=== PATIENT | female | born 1970 | race African-American/Black ===

== ENCOUNTER 2018-01-14 11:53 | Inpatient (IN) ==
[2018-01-14 12:34] LABS: Basophils % 0.1 % (0.0-0.8); Hematocrit 34.1 VOL% (35.7-47.0); Hemoglobin 10.7 GM/DL (12.0-16.0); Immature Granulocytes % 0.2 %; Immature Granulocytes Absolute 0.02 #; Lymphocytes # 2.7 10*3/uL (1.4-4.0); Lymphocytes % 25.4 % (21.3-54.2); Mean Corpuscular HGB Conc 31.4 GM/DL (32-36); Mean Corpuscular Hemoglobin 26 PG (27-34); Mean Corpuscular Volume 82.8 FL (87-102); Mean Platelet Volume 9.9 FL (9.6-12.0); Monocytes # 0.8 10*3/uL (0.11-0.8); Monocytes % 7.1 % (1.7-12.7); Neutrophils # 7.2 10*3/uL (1.4-7.4); Neutrophils % 67.2 % (38.7-73.9); Platelet Count 336 T/CUMM (130-400); Red Blood Count 4.12 MC/CUMM (3.8-5.5); Red Cell Distribution Width 13.8 % (9.3-17.3); White Blood Count 10.7 T/CUMM (4-12)
[2018-01-14 12:44] LABS: PT Patient Result 10.5 SECS; Partial Thromboplastin Time 23.6 SECS (0-40)
[2018-01-14 12:53] LABS: Albumin 2.9 G/DL (3.4-5.0); Bilirubin,Total 0.6 MG/DL (0.2-1.0); Calcium 8.9 MG/DL (8.5-10.1); Osmolality,Calculated 282.3 MOS/KG (273-304); Potassium 3.5 MMOL/L (3.5-5.1); Total Protein 6.9 G/DL (6.4-8.3)
[2018-01-14] MEDS ORDERED: FUROSEMIDE 40 MG/4 ML VIAL IV STA (13:00)
[2018-01-14 13:23] LABS: Apearance,Urine CLEAR (Clear); Bilirubin,Urine Negative (Negative); Blood, Urine Negative (Negative); Glucose,Urine (UA) Negative (Negative); Ketones,Urine Negative (Negative); Mucus,Urine Many /LPF (Occasional); Nitrite,Urine Negative (Negative); Protein,Urine 30 MG/DL; RBC,Urine 1 /HPF (0-4); Squamous Epithelial Cell,Urine Occasional /HPF (0-10); Urine Color Yellow (Yellow); Urine Specific Gravity 1.034 (1.001-1.035); WBC,Urine 1 /HPF (0-6)
[2018-01-14 13:30] LABS: Barbiturates Screen,Urine Negative (Negative); Benzodiazepines Screen,Urine Negative (Negative); Cannabinoid Screen,Urine Negative (Negative); Opiate Screen,Urine Positive (Negative); Phencyclidine Screen,Urine Negative (Negative)
[2018-01-14 13:40] LABS: ABG Base Excess -0.2 MMOL/L (-2.5-2.5); ABG HCO3 24.3 MMOL/L (20-26); ABG Oxygen Saturation 99.1 % (95-100); ABG PCO2 35.5 MM HG (35-48); ABG PH 7.433 (7.35-7.45); ABG TCO2 21.1 MMOL/L (23-27)
[2018-01-14] MEDS ORDERED: ONDANSETRON 4 MG/2 ML VIAL IV PRN (14:16)
[2018-01-14] MEDS ORDERED: ACETAMINOPHEN 325 MG TABLET PO PRN (14:16)
[2018-01-14] MEDS ORDERED: PANTOPRAZOLE 40 MG TABLET PO ONE (14:25)
[2018-01-14] MEDS: PANTOPRAZOLE 40 MG TABLET PO SCH (14:30)
[2018-01-14] MEDS: ENOXAPARIN 40 MG/0.4 ML SYRINGE SUBCUT SCH (14:31)
[2018-01-14] MEDS ORDERED: FLUCONAZOLE 150 MG TABLET PO SCH (15:30)
[2018-01-14] MEDS: METOPROLOL TARTRATE 50 MG TABLET PO SCH (18:02)
[2018-01-14] MEDS: ALBUTEROL/IPRATROPIUM 3 ML NEB RESP TX SCH (18:40)
[2018-01-14] MEDS: HYDROcodone/CHLORPHENIRAMINE ER 5 ML UDCUP PO PRN (20:50)
[2018-01-14] MEDS: FUROSEMIDE 40 MG/4 ML VIAL IV SCH (20:51)
[2018-01-14] MEDS: LOSARTAN 25 MG TABLET PO SCH (20:56)
[2018-01-15] MEDS: ALBUTEROL/IPRATROPIUM 3 ML NEB RESP TX SCH ×4 (00:10→19:36)
[2018-01-15 04:17] LABS: Basophils % 0.5 % (0.0-0.8); Eosinophils % 0.3 % (0.00-10.9); Hematocrit 33.4 VOL% (35.7-47.0); Hemoglobin 10.6 GM/DL (12.0-16.0); Immature Granulocytes % 0.3 %; Immature Granulocytes Absolute 0.03 #; Lymphocytes # 4.7 10*3/uL (1.4-4.0); Lymphocytes % 54.8 % (21.3-54.2); Mean Corpuscular HGB Conc 31.7 GM/DL (32-36); Mean Corpuscular Hemoglobin 26 PG (27-34); Mean Corpuscular Volume 83.1 FL (87-102); Mean Platelet Volume 10.1 FL (9.6-12.0); Monocytes # 0.5 10*3/uL (0.11-0.8); Monocytes % 6.3 % (1.7-12.7); Neutrophils # 3.3 10*3/uL (1.4-7.4); Neutrophils % 37.8 % (38.7-73.9); Platelet Count 344 T/CUMM (130-400); Red Blood Count 4.02 MC/CUMM (3.8-5.5); White Blood Count 8.6 T/CUMM (4-12)
[2018-01-15 04:34] LABS: Calcium 8.1 MG/DL (8.5-10.1); Osmolality,Calculated 284.3 MOS/KG (273-304); Potassium 3.1 MMOL/L (3.5-5.1)
[2018-01-15 04:47] LABS: Blood Urea Nitrogen 23 MG/DL (7-18); Calcium 8.1 MG/DL (8.5-10.1); Cholesterol 126 MG/DL (50-200); Glucose 104 MG/DL (74-106); HDL Cholesterol 45 MG/DL (40-60); Osmolality,Calculated 282.4 MOS/KG (273-304); Potassium 3.1 MMOL/L (3.5-5.1); Sodium 140 MMOL/L (136-145); Thyroid Stimulating Hormone < 0.005 uIU/ml (0.358-3.74); Triglycerides 88 MG/DL (2-150); VLDL CHOLESTEROL 17.6 MG/DL
[2018-01-15 04:57] LABS: Atypical Lymphocytes Few; Hypochromasia 1+; Lymphocytes 57 % (20-55); Platelet Estimate Adequate; Segmented Neutrophils 38 % (50-85); Total Cells Counted 100
[2018-01-15] MEDS ORDERED: POTASSIUM CHLORIDE 20 MEQ TABLET PO PRN (06:42)
[2018-01-15] MEDS ORDERED: POTASSIUM CHLORIDE 20 MEQ TABLET PO ONE (08:33)
[2018-01-15] MEDS: CEFUROXIME 500 MG TABLET PO SCH ×2 (08:52→23:51)
[2018-01-15] MEDS: METOPROLOL TARTRATE 50 MG TABLET PO SCH (08:52)
[2018-01-15] MEDS: FUROSEMIDE 40 MG/4 ML VIAL IV SCH ×2 (08:52→17:05)
[2018-01-15] MEDS: LOSARTAN 25 MG TABLET PO SCH ×2 (08:52→22:19)
[2018-01-15] MEDS: PANTOPRAZOLE 40 MG TABLET PO SCH (08:57)
[2018-01-15] MEDS: HYDROcodone/CHLORPHENIRAMINE ER 5 ML UDCUP PO PRN (08:57)
[2018-01-15] MEDS ORDERED: amLODIPine 2.5 MG TABLET PO SCH (09:00)
[2018-01-15] MEDS ORDERED: NAPROXEN 250 MG TABLET PO PRN (11:33)
[2018-01-15 11:37] LABS: Free T4 (Free Thyroxine) 2.53 NG/DL (0.76-1.46)
[2018-01-15] MEDS: POTASSIUM CHLORIDE 20 MEQ TABLET PO SCH (12:53)
[2018-01-15] MEDS: ENOXAPARIN 40 MG/0.4 ML SYRINGE SUBCUT SCH (15:29)
[2018-01-16] MEDS: ALBUTEROL/IPRATROPIUM 3 ML NEB RESP TX SCH ×2 (01:03→07:07)
[2018-01-16 05:04] LABS: Basophils % 0.3 % (0.0-0.8); Eosinophils # 0.1 10*3/uL (0.0-0.87); Eosinophils % 0.9 % (0.00-10.9); Hematocrit 35.1 VOL% (35.7-47.0); Hemoglobin 11.2 GM/DL (12.0-16.0); Immature Granulocytes % 0.1 %; Immature Granulocytes Absolute 0.01 #; Lymphocytes % 52.5 % (21.3-54.2); Mean Corpuscular HGB Conc 31.9 GM/DL (32-36); Mean Corpuscular Hemoglobin 27 PG (27-34); Mean Corpuscular Volume 83.8 FL (87-102); Mean Platelet Volume 10.3 FL (9.6-12.0); Monocytes # 0.5 10*3/uL (0.11-0.8); Monocytes % 6.5 % (1.7-12.7); Neutrophils % 39.7 % (38.7-73.9); Platelet Count 351 T/CUMM (130-400); Red Blood Count 4.19 MC/CUMM (3.8-5.5); Red Cell Distribution Width 13.7 % (9.3-17.3); White Blood Count 7.7 T/CUMM (4-12)
[2018-01-16 05:25] LABS: Ferritin 190.2 ng/ml (8-252)
[2018-01-16 05:33] LABS: Folate 12.5 NG/ML (5.4-24.0); Vitamin B12 693 PG/ML (211-911)
[2018-01-16 05:45] LABS: Calcium 8.5 MG/DL (8.5-10.1); Osmolality,Calculated 283.3 MOS/KG (273-304); Potassium 3.9 MMOL/L (3.5-5.1)
[2018-01-16 06:17] LABS: Sedimentation Rate-Westergren 58 MM/HR (0-20)
[2018-01-16 07:48] VITALS: BP 96/64
[2018-01-16] MEDS ORDERED: FUROSEMIDE 40 MG TABLET PO SCH (09:00)
[2018-01-16] MEDS ORDERED: LOSARTAN 25 MG TABLET PO SCH (09:00)
[2018-01-16] MEDS ORDERED: methIMAzole 10 MG TABLET PO SCH (09:00)
[2018-01-16] MEDS: CEFUROXIME 500 MG TABLET PO SCH (09:46)
[2018-01-16] MEDS: POTASSIUM CHLORIDE 20 MEQ TABLET PO SCH (09:46)
[2018-01-16] MEDS: PANTOPRAZOLE 40 MG TABLET PO SCH (09:46)
[2018-01-16] MEDS: METOPROLOL TARTRATE 50 MG TABLET PO SCH (11:17)
[2018-01-20 10:33] LABS: Hemoglobin A1 (Alkaline) 97.5 % (96.5-98.5); Hemoglobin A2 (Alkaline) 2.5 % (1.5-3.5)
== END 2018-01-16 12:15 | disposition home or self-care (01) | DRG 293 ==
LOC: N.ED 11:53 → N.EDINP 14:16 → N.2W 14:56 → N.TELEN 16:44
PROVIDERS: ADMIT Hospitalist; ATTEND Hospitalist

== ENCOUNTER 2018-03-13 04:56 | Inpatient (IN) ==
[2018-03-12 11:17] LABS: Basophils % 0.5 % (0.0-0.8); Eosinophils % 0.9 % (0.00-10.9); Hematocrit 36.7 VOL% (35.7-47.0); Hemoglobin 11.5 GM/DL (12.0-16.0); Immature Granulocytes % 0.2 %; Immature Granulocytes Absolute 0.01 #; Lymphocytes # 2.3 10*3/uL (1.4-4.0); Lymphocytes % 51.8 % (21.3-54.2); Mean Corpuscular HGB Conc 31.3 GM/DL (32-36); Mean Corpuscular Hemoglobin 27 PG (27-34); Mean Corpuscular Volume 84.8 FL (87-102); Mean Platelet Volume 9.9 FL (9.6-12.0); Monocytes # 0.3 10*3/uL (0.11-0.8); Monocytes % 7.6 % (1.7-12.7); Neutrophils # 1.7 10*3/uL (1.4-7.4); Platelet Count 240 T/CUMM (130-400); Red Blood Count 4.33 MC/CUMM (3.8-5.5); Red Cell Distribution Width 13.7 % (9.3-17.3); White Blood Count 4.4 T/CUMM (4-12)
[2018-03-12 11:26] LABS: Apearance,Urine CLOUDY (Clear); Bilirubin,Urine Negative (Negative); Blood, Urine Negative (Negative); Calcium Oxalate Crystals,Urine Few /HPF (Few); Glucose,Urine (UA) Negative (Negative); Ketones,Urine Negative (Negative); Mucus,Urine Many /LPF (Occasional); Nitrite,Urine Negative (Negative); Protein,Urine Negative; RBC,Urine 4 /HPF (0-4); Squamous Epithelial Cell,Urine Occasional /HPF (0-10); Urine Color Yellow (Yellow); Urine Specific Gravity 1.026 (1.001-1.035); Urine Urobilinogen < 2.0 EU/DL (0.2-1.0); WBC,Urine 2 /HPF (0-6)
[2018-03-12 11:27] LABS: PT Patient Result 10.7 SECS; Partial Thromboplastin Time 23.8 SECS (0-40)
[2018-03-12 11:42] LABS: Calcium 8.6 MG/DL (8.5-10.1); Osmolality,Calculated 281.3 MOS/KG (273-304); Potassium 3.7 MMOL/L (3.5-5.1)
[~2018-03-13 04:56] MED LIST: SODIUM CHLORIDE 0.9% 1,000 ML IV PRN; TISSUE ADHESIVE 1 EACH APPLICATOR TOP ONE; VANCOMYCIN 1,000 MG VIAL ONE
[2018-03-13] MEDS ORDERED: FAMOTIDINE 20 MG TABLET ONE (05:52)
[2018-03-13] MEDS ORDERED: DIAZEPAM 5 MG TABLET ONE (05:52)
[2018-03-13] MEDS ORDERED: CEFUROXIME 1,500 MG VIAL ONE (05:52)
[2018-03-13] MEDS ORDERED: FAMOTIDINE 20 MG TABLET PO ONE (06:00)
[2018-03-13] MEDS ORDERED: DIAZEPAM 5 MG TABLET PO ONE (06:00)
[2018-03-13] MEDS: LACTATED RINGERS 1,000 ML IV SCH (06:34)
[2018-03-13 08:00] LABS: ABG Base Excess -8.6 MMOL/L (-2.5-2.5); ABG HCO3 17.5 MMOL/L (20-26); ABG Oxygen Saturation 99.7 % (95-100); ABG PCO2 37.5 MM HG (35-48); ABG PH 7.278 (7.35-7.45); Glucose Heart Surgery 140 MG/DL (74-106); Hematocrit Heart Surgery 33.9 PERCENT (37-47); Ionized Calcium Arterial 1.09 MMOL/L (1.21-1.46); PCO2 Patient Temp Arterial 37.5 MMHG; PH Patient Temp Arterial 7.278; Patient Temperature 37 CELCIUS; Sodium Heart/CVR 134 MMOL/L (135-145)
[2018-03-13 08:15] LABS: Apearance,Urine CLEAR (Clear); Bilirubin,Urine Negative (Negative); Blood, Urine Small mg/dL (Negative); Glucose,Urine (UA) Negative (Negative); Ketones,Urine Negative (Negative); Mucus,Urine Occasional /LPF (Occasional); Nitrite,Urine Negative (Negative); Protein,Urine Negative; RBC,Urine 1 /HPF (0-4); Squamous Epithelial Cell,Urine Occasional /HPF (0-10); Urine Color Yellow (Yellow); Urine Specific Gravity 1.019 (1.001-1.035); Urine Urobilinogen < 2.0 EU/DL (0.2-1.0); WBC,Urine 1 /HPF (0-6)
[2018-03-13] MEDS ORDERED: MINERAL OIL/PETROLATUM OPH OINT 3.5 GM TUBE ONE (08:30)
[2018-03-13] MEDS ORDERED: PHENYLEPHRINE DRIP 20 MG/250 ML PREMIX IV ONE (08:30)
[2018-03-13] MEDS ORDERED: HEPARIN/NACL 0.9% 2 UNITS/ML 500 ML IV ONE (08:30)
[2018-03-13] MEDS ORDERED: ETOMIDATE 40 MG/20 ML VIAL IV ONE (08:31)
[2018-03-13] MEDS ORDERED: VECURONIUM 10 MG VIAL IV ONE (08:31)
[2018-03-13] MEDS ORDERED: NITROGLYCERIN DRIP 50 MG/250 ML BOTTLE IV ONE (08:31)
[2018-03-13 08:51] LABS: Hematocrit Heart Surgery 18.6 PERCENT (37-47); PCO2 Patient Temp Venous 31.3 MM HG; PH Patient Temp Venous 7.549; PO2 Patient Temp Venous 31.6 MM HG; Potassium Heart/CVR 5.3 MMOL/L (3.5-5.1); VBG Base Excess 4.9 MEQ/L (0-4); VBG HCO3 28.6 MEQ/L (24-28); VBG PCO2 34.5 MMHG (41-51); VBG PH 7.518; VBG PO2 36.3 MMHG (17-40)
[2018-03-13 08:53] LABS: Hemoglobin Heart Surgery 5.9 G/DL (12.0-16.0)
[2018-03-13 09:23] LABS: Hematocrit Heart Surgery 19.2 PERCENT (37-47); PCO2 Patient Temp Venous 28.3 MM HG; PH Patient Temp Venous 7.555; PO2 Patient Temp Venous 26.9 MM HG; Potassium Heart/CVR 5.1 MMOL/L (3.5-5.1); VBG HCO3 26.8 MEQ/L (24-28); VBG Oxygen Saturation 67.2 %; VBG PCO2 32.7 MMHG (41-51); VBG PH 7.509; VBG PO2 33.2 MMHG (17-40)
[2018-03-13 09:24] LABS: Hemoglobin Heart Surgery 6.1 G/DL (12.0-16.0)
[2018-03-13 09:55] LABS: Hematocrit Heart Surgery 21.3 PERCENT (37-47); Hemoglobin Heart Surgery 6.8 G/DL (12.0-16.0); PCO2 Patient Temp Venous 28.7 MM HG; PH Patient Temp Venous 7.532; PO2 Patient Temp Venous 31.8 MM HG; VBG Base Excess 1.9 MEQ/L (0-4); VBG HCO3 25.9 MEQ/L (24-28); VBG Oxygen Saturation 79.5 %; VBG PCO2 34.8 MMHG (41-51); VBG PH 7.472
[2018-03-13] MEDS ORDERED: LABETALOL 100 MG/20 ML VIAL IV ONE (10:08)
[2018-03-13] MEDS ORDERED: AMINOCAPROIC ACID 5,000 MG/20 ML VIAL IV ONE (10:10)
[2018-03-13] MEDS ORDERED: THROMBIN TOPICAL (RECOMBINANT) 5,000 UNIT VIAL TOP ONE ×2 (10:56→11:09)
[2018-03-13 11:00] LABS: ABG Base Excess -4.8 MMOL/L (-2.5-2.5); ABG HCO3 20.4 MMOL/L (20-26); ABG PCO2 39.8 MM HG (35-48); ABG PH 7.326 (7.35-7.45); ABG TCO2 19.5 MMOL/L (23-27); Glucose Heart Surgery 269 MG/DL (74-106); Hematocrit Heart Surgery 25.4 PERCENT (37-47); Hemoglobin Heart Surgery 8.2 G/DL (12.0-16.0); Ionized Calcium Arterial 1.14 MMOL/L (1.21-1.46); PCO2 Patient Temp Arterial 39.8 MMHG; PH Patient Temp Arterial 7.326; Patient Temperature 37 CELCIUS; Potassium Heart/CVR 3.8 MMOL/L (3.5-5.1); Sodium Heart/CVR 135 MMOL/L (135-145)
[2018-03-13] MEDS ORDERED: methylPREDNISolone SOD SUC 1,000 MG/8 ML VIAL ONE (11:16)
[2018-03-13] MEDS ORDERED: POTASSIUM CHLORIDE RIDER 100 ML IV ONE (11:16)
[2018-03-13] MEDS ORDERED: MANNITOL 100 GM/500 ML BAG IV ONE (11:16)
[2018-03-13] MEDS ORDERED: SODIUM BICARBONATE 50 MEQ/50 ML SYRINGE IV ONE ×3 (11:16→16:24)
[2018-03-13] MEDS ORDERED: ALBUMIN 25% 25 GM/100 ML VIAL IV ONE (11:16)
[2018-03-13] MEDS ORDERED: DEXTROSE 5% KCL 20 MEQ 20 MEQ/1,000 ML BAG IV ONE (11:16)
[2018-03-13] MEDS ORDERED: PROTAMINE SULFATE 250 MG/25 ML VIAL IV ONE (11:16)
[2018-03-13] MEDS ORDERED: HEPARIN 10,000 UNIT/10 ML VIAL ONE (11:16)
[2018-03-13] MEDS ORDERED: FUROSEMIDE 20 MG/2 ML VIAL ONE (11:17)
[2018-03-13] MEDS ORDERED: ACETAMINOPHEN 650 MG SUPP RECTAL PRN (11:49)
[2018-03-13] MEDS ORDERED: MIDAZOLAM 2 MG/2 ML VIAL IV PRN (11:49)
[2018-03-13] MEDS ORDERED: DEXTROSE 50% 25 GM/50 ML SYRINGE IV PRN ×2 (11:49→12:30)
[2018-03-13] MEDS ORDERED: DEXTROSE 50% 25 GM/50 ML VIAL IV PRN (11:49)
[2018-03-13] MEDS ORDERED: POTASSIUM CHLORIDE RIDER 10 MEQ in PREMIX 1 EACH IV PRN (11:49)
[2018-03-13] MEDS ORDERED: MAGNESIUM SULF RIDER 2 GM in PREMIX 1 EACH IV PRN (11:49)
[2018-03-13] MEDS ORDERED: CHLORHEXIDINE 4% SOLN 118 ML BOTTLE TOP PRN (11:49)
[2018-03-13] MEDS ORDERED: SODIUM CHLORIDE 0.9% 250 ML IV PRN (11:49)
[2018-03-13] MEDS ORDERED: INSULIN REGULAR 100 UNIT/ML IV PRN (11:49)
[2018-03-13] MEDS ORDERED: MAGNESIUM SULF RIDER 4 GM in PREMIX 1 EACH IV PRN (11:49)
[2018-03-13] MEDS ORDERED: CALCIUM CHLORIDE 1,000 MG/10 ML SYRINGE IV PRN (11:49)
[2018-03-13] MEDS ORDERED: PHENYLEPHRINE DRIP 0 MG/0 ML PREMIX IV ONE (11:51)
[2018-03-13] MEDS ORDERED: ALBUMIN 5% 12.5 GM/250 ML VIAL IV ONE ×2 (11:51→12:56)
[2018-03-13] MEDS ORDERED: EPINEPHrine 1 MG/ML VIAL ONE (11:54)
[2018-03-13] MEDS ORDERED: INSULIN REGULAR DRIP 100 ML IV SCH (12:00)
[2018-03-13 12:12] LABS: ABG Base Excess -5.9 MMOL/L (-2.5-2.5); ABG HCO3 18.4 MMOL/L (20-26); ABG Oxygen Saturation 98.7 % (95-100); ABG PCO2 31.6 MM HG (35-48); ABG PH 7.384 (7.35-7.45); ABG PO2 245.6 MM HG (80-95); ABG TCO2 19.4 MMOL/L (23-27); Glucose Heart Surgery 233 MG/DL (74-106); Potassium Heart/CVR 3.4 MMOL/L (3.5-5.1)
[2018-03-13 12:16] LABS: Basophils % 0.2 % (0.0-0.8); Eosinophils % 0.2 % (0.00-10.9); Hematocrit 23.1 VOL% (35.7-47.0); Immature Granulocytes % 0.6 %; Immature Granulocytes Absolute 0.08 #; Lymphocytes # 2.7 10*3/uL (1.4-4.0); Mean Corpuscular HGB Conc 31.6 GM/DL (32-36); Mean Corpuscular Hemoglobin 27 PG (27-34); Mean Corpuscular Volume 85.2 FL (87-102); Mean Platelet Volume 10.5 FL (9.6-12.0); Monocytes # 0.7 10*3/uL (0.11-0.8); Monocytes % 5.7 % (1.7-12.7); Neutrophils # 8.8 10*3/uL (1.4-7.4); Neutrophils % 71.3 % (38.7-73.9); Platelet Count 139 T/CUMM (130-400); Red Blood Count 2.71 MC/CUMM (3.8-5.5); Red Cell Distribution Width 13.8 % (9.3-17.3); White Blood Count 12.4 T/CUMM (4-12)
[2018-03-13 12:20] LABS: Hemoglobin 7.3 GM/DL (12.0-16.0)
[2018-03-13] MEDS: ALBUMIN 5% 12.5 GM in PREMIX 1 EACH IV PRN ×2 (12:24→15:00)
[2018-03-13] MEDS: SODIUM CHLORIDE 0.45% 1,000 ML IV SCH ×2 (12:25)
[2018-03-13 12:26] LABS: INR 1.4; PT Patient Result 14.7 SECS; Partial Thromboplastin Time 29.4 SECS (0-40)
[2018-03-13 12:36] LABS: Blood Urea Nitrogen 14 MG/DL (7-18); Calcium 7.9 MG/DL (8.5-10.1); Glucose 234 MG/DL (74-106); Osmolality,Calculated 291.1 MOS/KG (273-304); Potassium 3.6 MMOL/L (3.5-5.1); Sodium 142 MMOL/L (136-145)
[2018-03-13] MEDS: POTASSIUM CHLORIDE RIDER 20 MEQ in PREMIX 1 EACH IV PRN (12:38)
[2018-03-13] MEDS ORDERED: CALCIUM CHLORIDE 1,000 MG/10 ML VIAL IV ONE (12:55)
[2018-03-13] MEDS ORDERED: SEVOFLURANE 1 UNIT/15 MINUTE INH ONE (12:55)
[2018-03-13] MEDS ORDERED: SODIUM CHLORIDE 0.9% 1,000 ML IV ONE (12:56)
[2018-03-13] MEDS ORDERED: LACTATED RINGERS 2,000 ML IV ONE (12:56)
[2018-03-13] MEDS ORDERED: MIDAZOLAM 10 MG/2 ML VIAL ONE (12:56)
[2018-03-13] MEDS ORDERED: PHENYLEPHRINE 1 MG/10 ML SYRINGE IV ONE (12:56)
[2018-03-13] MEDS ORDERED: SODIUM CHLORIDE 0.9% 100 ML IV ONE (12:56)
[2018-03-13] MEDS ORDERED: SODIUM CHLORIDE 0.9% 250 ML IV ONE (12:56)
[2018-03-13] MEDS ORDERED: CEFUROXIME INJ 1,500 MG in SYRINGE 1 EACH IV ONE (13:16)
[2018-03-13 13:53] LABS: VBG Base Excess -5.8 MEQ/L (0-4); VBG HCO3 18.9 MEQ/L (24-28); VBG Oxygen Saturation 47.4 %; VBG PH 7.282; VBG PO2 29.3 MMHG (17-40)
[2018-03-13] MEDS: MORPHINE 10 MG/1 ML VIAL IV PRN (14:43)
[2018-03-13 16:12] LABS: ABG Base Excess -7.7 MMOL/L (-2.5-2.5); ABG HCO3 18.4 MMOL/L (20-26); ABG PCO2 39.6 MM HG (35-48); ABG PH 7.285 (7.35-7.45); ABG PO2 94.8 MM HG (80-95); ABG TCO2 19.6 MMOL/L (23-27)
[2018-03-13] MEDS ORDERED: DOBUTamine 500 MG/250 ML PREMIX IV ONE (16:22)
[2018-03-13] MEDS ORDERED: DOBUTamine 500 MG/250 ML PREMIX IV SCH (16:30)
[2018-03-13 16:55] LABS: Hematocrit 30.3 VOL% (35.7-47.0); Hemoglobin 9.8 GM/DL (12.0-16.0)
[2018-03-13] MEDS: MORPHINE 4 MG/1 ML VIAL IV PRN ×2 (17:15→20:52)
[2018-03-13] MEDS: ONDANSETRON 4 MG/2 ML VIAL IV PRN ×2 (18:07→23:00)
[2018-03-13] MEDS: CEFUROXIME INJ 1,500 MG in SYRINGE 1 EACH IV SCH (20:56)
[2018-03-13] MEDS: CHLORHEXIDINE 0.12% ORAL RINSE 60 ML BOTTLE SWISH/SPIT SCH (21:38)
[2018-03-14] MEDS: MORPHINE 4 MG/1 ML VIAL IV PRN ×6 (00:19→20:19)
[2018-03-14] MEDS: SODIUM CHLORIDE 0.45% 1,000 ML IV SCH ×3 (01:31→08:28)
[2018-03-14 04:27] LABS: Basophils % 0.1 % (0.0-0.8); Hematocrit 30.9 VOL% (35.7-47.0); Hemoglobin 10.1 GM/DL (12.0-16.0); Immature Granulocytes % 0.5 %; Immature Granulocytes Absolute 0.05 #; Lymphocytes % 9.1 % (21.3-54.2); Mean Corpuscular HGB Conc 32.7 GM/DL (32-36); Mean Corpuscular Hemoglobin 28 PG (27-34); Mean Corpuscular Volume 86.8 FL (87-102); Mean Platelet Volume 11.2 FL (9.6-12.0); Monocytes # 0.7 10*3/uL (0.11-0.8); Monocytes % 6.3 % (1.7-12.7); Neutrophils # 9.2 10*3/uL (1.4-7.4); Platelet Count 117 T/CUMM (130-400); Red Blood Count 3.56 MC/CUMM (3.8-5.5); Red Cell Distribution Width 14.3 % (9.3-17.3)
[2018-03-14 04:35] LABS: Calcium 7.1 MG/DL (8.5-10.1); Osmolality,Calculated 285.8 MOS/KG (273-304); Potassium 3.9 MMOL/L (3.5-5.1)
[2018-03-14] MEDS: ONDANSETRON 4 MG/2 ML VIAL IV PRN ×3 (06:01→17:25)
[2018-03-14] MEDS: POTASSIUM CHLORIDE RIDER 20 MEQ in PREMIX 1 EACH IV PRN (06:14)
[2018-03-14] MEDS: LACTATED RINGERS 1,000 ML IV SCH (07:07)
[2018-03-14] MEDS: ALBUTEROL/IPRATROPIUM 3 ML NEB RESP TX SCH ×3 (07:30→19:06)
[2018-03-14] MEDS ORDERED: FUROSEMIDE 40 MG/4 ML VIAL IV ONE (07:35)
[2018-03-14] MEDS: CEFUROXIME INJ 1,500 MG in SYRINGE 1 EACH IV SCH ×2 (07:53→20:29)
[2018-03-14] MEDS: FUROSEMIDE 40 MG TABLET PO SCH (08:15)
[2018-03-14] MEDS: CHLORHEXIDINE 0.12% ORAL RINSE 60 ML BOTTLE SWISH/SPIT SCH ×2 (08:16→20:29)
[2018-03-14] MEDS: PANTOPRAZOLE 40 MG VIAL IV SCH (08:28)
[2018-03-14] MEDS: ASPIRIN EC 325 MG TABLET PO SCH (08:28)
[2018-03-14] MEDS ORDERED: CODEINE PO PRN (10:34)
[2018-03-14] MEDS ORDERED: GUAIFEN PO PRN (10:34)
[2018-03-14] MEDS ORDERED: [UNRECOGNIZED DRUG - OTHER] PO PRN (10:34)
[2018-03-14] MEDS: METOPROLOL TARTRATE 25 MG TABLET PO SCH ×2 (10:39→20:28)
[2018-03-14] MEDS: methIMAzole 10 MG TABLET PO SCH ×2 (10:52→20:27)
[2018-03-14] MEDS ORDERED: ALBUTEROL 2.5 MG/3 ML NEB RESP TX PRN (11:00)
[2018-03-14] MEDS ORDERED: ALBUTEROL/IPRATROPIUM 3 ML NEB RESP TX SCH (13:00)
[2018-03-14] MEDS: BENZONATATE 100 MG CAPSULE PO PRN (20:27)
[2018-03-14] MEDS: ATORVASTATIN 40 MG TABLET PO SCH (20:28)
[2018-03-15] MEDS: ALBUTEROL/IPRATROPIUM 3 ML NEB RESP TX SCH ×4 (00:12→20:05)
[2018-03-15] MEDS: MORPHINE 4 MG/1 ML VIAL IV PRN ×2 (01:52→20:55)
[2018-03-15 04:37] LABS: Basophils % 0.1 % (0.0-0.8); Hematocrit 34.4 VOL% (35.7-47.0); Hemoglobin 10.9 GM/DL (12.0-16.0); Immature Granulocytes % 1.7 %; Lymphocytes # 2.9 10*3/uL (1.4-4.0); Lymphocytes % 15.7 % (21.3-54.2); Mean Corpuscular HGB Conc 31.7 GM/DL (32-36); Mean Corpuscular Hemoglobin 29 PG (27-34); Mean Corpuscular Volume 90.3 FL (87-102); Mean Platelet Volume 11.6 FL (9.6-12.0); Monocytes # 1.3 10*3/uL (0.11-0.8); Monocytes % 6.9 % (1.7-12.7); NRBC # 0.03 10*3/uL; Neutrophils # 13.8 10*3/uL (1.4-7.4); Neutrophils % 75.6 % (38.7-73.9); Platelet Count 147 T/CUMM (130-400); Red Blood Count 3.81 MC/CUMM (3.8-5.5); Red Cell Distribution Width 14.8 % (9.3-17.3); White Blood Count 18.2 T/CUMM (4-12)
[2018-03-15 05:02] LABS: Calcium 7.1 MG/DL (8.5-10.1); Osmolality,Calculated 278.1 MOS/KG (273-304); Potassium 4.3 MMOL/L (3.5-5.1)
[2018-03-15 05:03] LABS: Calcium 7.2 MG/DL (8.5-10.1); Osmolality,Calculated 280.8 MOS/KG (273-304); Potassium 4.4 MMOL/L (3.5-5.1)
[2018-03-15] MEDS: LACTATED RINGERS 1,000 ML IV SCH (09:34)
[2018-03-15] MEDS: FUROSEMIDE 40 MG TABLET PO SCH (09:36)
[2018-03-15] MEDS: ASPIRIN EC 325 MG TABLET PO SCH (09:36)
[2018-03-15] MEDS: METOPROLOL TARTRATE 25 MG TABLET PO SCH ×2 (09:36→20:59)
[2018-03-15] MEDS: methIMAzole 10 MG TABLET PO SCH ×2 (09:36→20:59)
[2018-03-15] MEDS: CHLORHEXIDINE 0.12% ORAL RINSE 60 ML BOTTLE SWISH/SPIT SCH ×2 (09:37→21:00)
[2018-03-15] MEDS: PANTOPRAZOLE 40 MG VIAL IV SCH (09:58)
[2018-03-15] MEDS ORDERED: FUROSEMIDE 40 MG/4 ML VIAL IV ONE (12:05)
[2018-03-15] MEDS: BENZONATATE 100 MG CAPSULE PO PRN (20:58)
[2018-03-15] MEDS: ATORVASTATIN 40 MG TABLET PO SCH (20:59)
[2018-03-16] MEDS: ALBUTEROL/IPRATROPIUM 3 ML NEB RESP TX SCH ×4 (01:56→19:06)
[2018-03-16 05:29] LABS: Basophils % 0.1 % (0.0-0.8); Hematocrit 30.8 VOL% (35.7-47.0); Hemoglobin 10.1 GM/DL (12.0-16.0); Immature Granulocytes % 0.7 %; Lymphocytes # 2.6 10*3/uL (1.4-4.0); Lymphocytes % 19.2 % (21.3-54.2); Mean Corpuscular HGB Conc 32.8 GM/DL (32-36); Mean Corpuscular Hemoglobin 29 PG (27-34); Mean Corpuscular Volume 87.3 FL (87-102); Mean Platelet Volume 11.3 FL (9.6-12.0); Monocytes # 1.2 10*3/uL (0.11-0.8); Monocytes % 8.8 % (1.7-12.7); Neutrophils # 9.7 10*3/uL (1.4-7.4); Neutrophils % 71.2 % (38.7-73.9); Platelet Count 140 T/CUMM (130-400); Red Blood Count 3.53 MC/CUMM (3.8-5.5); Red Cell Distribution Width 14.4 % (9.3-17.3); White Blood Count 13.7 T/CUMM (4-12)
[2018-03-16 05:45] LABS: Calcium 7.3 MG/DL (8.5-10.1); Osmolality,Calculated 278.8 MOS/KG (273-304); Potassium 3.7 MMOL/L (3.5-5.1)
[2018-03-16] MEDS ORDERED: POTASSIUM CHLORIDE 20 MEQ TABLET PO ONE (08:31)
[2018-03-16] MEDS: methIMAzole 10 MG TABLET PO SCH ×2 (09:13→22:36)
[2018-03-16] MEDS: METOPROLOL TARTRATE 25 MG TABLET PO SCH ×2 (09:13→22:36)
[2018-03-16] MEDS: PANTOPRAZOLE 40 MG TABLET PO SCH (09:13)
[2018-03-16] MEDS: FUROSEMIDE 40 MG TABLET PO SCH (09:13)
[2018-03-16] MEDS: ASPIRIN EC 325 MG TABLET PO SCH (09:14)
[2018-03-16] MEDS: CHLORHEXIDINE 0.12% ORAL RINSE 60 ML BOTTLE SWISH/SPIT SCH ×2 (09:14→22:36)
[2018-03-16] MEDS: DOCUSATE SODIUM 100 MG CAPSULE PO PRN (09:20)
[2018-03-16] MEDS: MORPHINE 4 MG/1 ML VIAL IV PRN (20:33)
[2018-03-16] MEDS: ONDANSETRON 4 MG/2 ML VIAL IV PRN (20:33)
[2018-03-16] MEDS: ATORVASTATIN 40 MG TABLET PO SCH (22:36)
[2018-03-17] MEDS: ALBUTEROL/IPRATROPIUM 3 ML NEB RESP TX SCH ×4 (00:06→19:55)
[2018-03-17 05:34] LABS: Basophils % 0.1 % (0.0-0.8); Hematocrit 26.7 VOL% (35.7-47.0); Hemoglobin 8.7 GM/DL (12.0-16.0); Immature Granulocytes % 1.1 %; Immature Granulocytes Absolute 0.15 #; Lymphocytes # 3.2 10*3/uL (1.4-4.0); Lymphocytes % 24.7 % (21.3-54.2); Mean Corpuscular HGB Conc 32.6 GM/DL (32-36); Mean Corpuscular Hemoglobin 29 PG (27-34); Mean Corpuscular Volume 88.1 FL (87-102); Mean Platelet Volume 11.1 FL (9.6-12.0); Monocytes # 1.3 10*3/uL (0.11-0.8); Monocytes % 9.9 % (1.7-12.7); NRBC # 0.05 10*3/uL; Neutrophils # 8.4 10*3/uL (1.4-7.4); Neutrophils % 64.2 % (38.7-73.9); Platelet Count 189 T/CUMM (130-400); Red Blood Count 3.03 MC/CUMM (3.8-5.5); Red Cell Distribution Width 14.2 % (9.3-17.3); White Blood Count 13.1 T/CUMM (4-12)
[2018-03-17 05:52] LABS: Calcium 7.8 MG/DL (8.5-10.1); Potassium 4.4 MMOL/L (3.5-5.1)
[2018-03-17] MEDS: METOPROLOL TARTRATE 25 MG TABLET PO SCH (08:36)
[2018-03-17] MEDS: FUROSEMIDE 40 MG TABLET PO SCH ×2 (08:36→17:15)
[2018-03-17] MEDS: PANTOPRAZOLE 40 MG TABLET PO SCH (08:37)
[2018-03-17] MEDS: CHLORHEXIDINE 0.12% ORAL RINSE 60 ML BOTTLE SWISH/SPIT SCH (08:37)
[2018-03-17] MEDS: ASPIRIN EC 325 MG TABLET PO SCH (08:37)
[2018-03-17] MEDS: methIMAzole 10 MG TABLET PO SCH (08:37)
[2018-03-17] MEDS ORDERED: FUROSEMIDE 40 MG/4 ML VIAL IV ONE (09:15)
[2018-03-17] MEDS: HEPARIN DRIP 25,000 UNITS/500 ML PREMIX IV SCH (10:06)
[2018-03-17] MEDS ORDERED: MIDAZOLAM 2 MG/2 ML VIAL IV ONE (10:58)
[2018-03-17] MEDS ORDERED: LIDOCAINE 1% 20 ML VIAL INFILTRAT ONE (11:05)
[2018-03-17] MEDS ORDERED: MIDAZOLAM 10 MG/2 ML VIAL ONE (11:27)
[2018-03-17] MEDS: MORPHINE 10 MG/1 ML VIAL IV PRN (12:30)
[2018-03-17] MEDS: WARFARIN 5 MG TABLET PO SCH (17:15)
[2018-03-17] MEDS ORDERED: HEPARIN 5,000 UNIT/1 ML VIAL IV ONE (17:25)
[2018-03-17] MEDS: ONDANSETRON 4 MG/2 ML VIAL IV PRN (20:48)
[2018-03-17] MEDS: MORPHINE 4 MG/1 ML VIAL IV PRN (20:48)
[2018-03-18] MEDS: methIMAzole 10 MG TABLET PO SCH ×3 (00:02→22:25)
[2018-03-18] MEDS: ESCITALOPRAM 10 MG TABLET PO SCH ×2 (00:02→22:25)
[2018-03-18] MEDS: ATORVASTATIN 40 MG TABLET PO SCH ×2 (00:02→22:25)
[2018-03-18] MEDS: METOPROLOL TARTRATE 25 MG TABLET PO SCH ×3 (00:02→22:25)
[2018-03-18] MEDS: CHLORHEXIDINE 0.12% ORAL RINSE 60 ML BOTTLE SWISH/SPIT SCH ×3 (00:04→22:25)
[2018-03-18] MEDS: ALBUTEROL/IPRATROPIUM 3 ML NEB RESP TX SCH ×4 (01:50→19:03)
[2018-03-18] MEDS: MORPHINE 10 MG/1 ML VIAL IV PRN (02:36)
[2018-03-18] MEDS: ASPIRIN EC 325 MG TABLET PO SCH (08:42)
[2018-03-18] MEDS: FUROSEMIDE 40 MG TABLET PO SCH ×2 (08:42→17:36)
[2018-03-18] MEDS: PANTOPRAZOLE 40 MG TABLET PO SCH (08:43)
[2018-03-18 08:44] LABS: Basophils % 0.1 % (0.0-0.8); Eosinophils # 0.1 10*3/uL (0.0-0.87); Eosinophils % 0.4 % (0.00-10.9); Hematocrit 25.3 VOL% (35.7-47.0); Hemoglobin 8.4 GM/DL (12.0-16.0); Immature Granulocytes % 0.9 %; Immature Granulocytes Absolute 0.14 #; Lymphocytes # 4.2 10*3/uL (1.4-4.0); Lymphocytes % 27.9 % (21.3-54.2); Mean Corpuscular HGB Conc 33.2 GM/DL (32-36); Mean Corpuscular Hemoglobin 29 PG (27-34); Mean Corpuscular Volume 87.2 FL (87-102); Mean Platelet Volume 10.7 FL (9.6-12.0); Monocytes # 1.5 10*3/uL (0.11-0.8); Monocytes % 9.9 % (1.7-12.7); Neutrophils # 9.1 10*3/uL (1.4-7.4); Neutrophils % 60.8 % (38.7-73.9); Platelet Count 254 T/CUMM (130-400)
[2018-03-18 09:06] LABS: Calcium 8.1 MG/DL (8.5-10.1); Osmolality,Calculated 268.4 MOS/KG (273-304); Potassium 3.7 MMOL/L (3.5-5.1)
[2018-03-18] MEDS ORDERED: FUROSEMIDE 40 MG/4 ML VIAL IV ONE ×2 (10:10→17:00)
[2018-03-18] MEDS ORDERED: SODIUM CHLORIDE 0.9% 1,000 ML IV PRN (10:11)
[2018-03-18] MEDS: HEPARIN DRIP 25,000 UNITS/500 ML PREMIX IV SCH (11:45)
[2018-03-18] MEDS: WARFARIN 5 MG TABLET PO SCH (17:36)
[2018-03-18] MEDS: MORPHINE 4 MG/1 ML VIAL IV PRN (22:24)
[2018-03-19] MEDS: ALBUTEROL/IPRATROPIUM 3 ML NEB RESP TX SCH ×4 (00:43→20:31)
[2018-03-19 05:15] LABS: INR 1.4; PT Patient Result 15.4 SECS
[2018-03-19 05:17] LABS: Basophils % 0.1 % (0.0-0.8); Eosinophils # 0.1 10*3/uL (0.0-0.87); Eosinophils % 0.5 % (0.00-10.9); Hematocrit 31.1 VOL% (35.7-47.0); Hemoglobin 10.2 GM/DL (12.0-16.0); Immature Granulocytes % 0.9 %; Immature Granulocytes Absolute 0.13 #; Lymphocytes # 3.7 10*3/uL (1.4-4.0); Lymphocytes % 24.7 % (21.3-54.2); Mean Corpuscular HGB Conc 32.8 GM/DL (32-36); Mean Corpuscular Hemoglobin 29 PG (27-34); Mean Corpuscular Volume 88.1 FL (87-102); Mean Platelet Volume 10.8 FL (9.6-12.0); Monocytes # 1.3 10*3/uL (0.11-0.8); Monocytes % 8.9 % (1.7-12.7); Neutrophils # 9.7 10*3/uL (1.4-7.4); Neutrophils % 64.9 % (38.7-73.9); Platelet Count 267 T/CUMM (130-400); Red Blood Count 3.53 MC/CUMM (3.8-5.5); Red Cell Distribution Width 14.3 % (9.3-17.3)
[2018-03-19 05:45] LABS: Calcium 8.4 MG/DL (8.5-10.1); Osmolality,Calculated 269.2 MOS/KG (273-304); Potassium 3.7 MMOL/L (3.5-5.1)
[2018-03-19] MEDS: PANTOPRAZOLE 40 MG TABLET PO SCH (09:35)
[2018-03-19] MEDS: methIMAzole 10 MG TABLET PO SCH ×2 (09:35→22:05)
[2018-03-19] MEDS: FUROSEMIDE 40 MG TABLET PO SCH ×2 (09:35→17:20)
[2018-03-19] MEDS: ASPIRIN EC 325 MG TABLET PO SCH (09:35)
[2018-03-19] MEDS: METOPROLOL TARTRATE 25 MG TABLET PO SCH ×2 (09:35→22:05)
[2018-03-19] MEDS: CHLORHEXIDINE 0.12% ORAL RINSE 60 ML BOTTLE SWISH/SPIT SCH ×2 (09:39→22:06)
[2018-03-19] MEDS: HEPARIN DRIP 25,000 UNITS/500 ML PREMIX IV SCH (10:21)
[2018-03-19] MEDS: ENOXAPARIN 60 MG/0.6 ML SYRINGE SUBCUT SCH ×2 (10:56→22:05)
[2018-03-19] MEDS: MAGNESIUM CHLORIDE 64 MG TABLET PO SCH (10:56)
[2018-03-19] MEDS: WARFARIN 5 MG TABLET PO SCH (17:20)
[2018-03-19] MEDS: ESCITALOPRAM 10 MG TABLET PO SCH (22:05)
[2018-03-19] MEDS: ATORVASTATIN 40 MG TABLET PO SCH (22:05)
[2018-03-20] MEDS: ALBUTEROL/IPRATROPIUM 3 ML NEB RESP TX SCH ×4 (00:29→20:14)
[2018-03-20] MEDS: CHLORHEXIDINE 0.12% ORAL RINSE 60 ML BOTTLE SWISH/SPIT SCH ×2 (09:12→21:06)
[2018-03-20] MEDS: FUROSEMIDE 40 MG TABLET PO SCH ×2 (09:12→16:15)
[2018-03-20] MEDS: methIMAzole 10 MG TABLET PO SCH ×2 (09:12→21:06)
[2018-03-20] MEDS: MAGNESIUM CHLORIDE 64 MG TABLET PO SCH (09:12)
[2018-03-20] MEDS: ENOXAPARIN 60 MG/0.6 ML SYRINGE SUBCUT SCH (09:12)
[2018-03-20] MEDS: ASPIRIN EC 325 MG TABLET PO SCH (09:12)
[2018-03-20] MEDS: METOPROLOL TARTRATE 25 MG TABLET PO SCH ×2 (09:12→21:05)
[2018-03-20] MEDS: PANTOPRAZOLE 40 MG TABLET PO SCH (09:12)
[2018-03-20 10:04] LABS: INR 3.1
[2018-03-20 10:09] LABS: PT Patient Result 33.2 SECS
[2018-03-20 10:41] LABS: Calcium 8.1 MG/DL (8.5-10.1); Osmolality,Calculated 272.1 MOS/KG (273-304); Potassium 3.2 MMOL/L (3.5-5.1)
[2018-03-20] MEDS: POTASSIUM CHLORIDE RIDER 20 MEQ in PREMIX 1 EACH IV PRN (11:55)
[2018-03-20] MEDS: BENZONATATE 100 MG CAPSULE PO PRN ×2 (12:53→18:16)
[2018-03-20] MEDS: WARFARIN 5 MG TABLET PO SCH (18:17)
[2018-03-20 18:28] LABS: INR 2.5
[2018-03-20 18:49] LABS: PT Patient Result 27.4 SECS
[2018-03-20] MEDS: ESCITALOPRAM 10 MG TABLET PO SCH (21:05)
[2018-03-20] MEDS: ATORVASTATIN 40 MG TABLET PO SCH (21:06)
[2018-03-20] MEDS: MORPHINE 4 MG/1 ML VIAL IV PRN (21:12)
[2018-03-21] MEDS: ALBUTEROL/IPRATROPIUM 3 ML NEB RESP TX SCH ×3 (02:02→13:38)
[2018-03-21 05:07] LABS: INR 2.9
[2018-03-21] MEDS: FUROSEMIDE 40 MG TABLET PO SCH (08:50)
[2018-03-21] MEDS: PANTOPRAZOLE 40 MG TABLET PO SCH (08:50)
[2018-03-21] MEDS: BENZONATATE 100 MG CAPSULE PO PRN (08:50)
[2018-03-21] MEDS: MAGNESIUM CHLORIDE 64 MG TABLET PO SCH (08:50)
[2018-03-21] MEDS: ASPIRIN EC 325 MG TABLET PO SCH (08:50)
[2018-03-21] MEDS: METOPROLOL TARTRATE 25 MG TABLET PO SCH (08:51)
[2018-03-21] MEDS: methIMAzole 10 MG TABLET PO SCH (08:51)
[2018-03-21] MEDS: DOCUSATE SODIUM 100 MG CAPSULE PO PRN (08:51)
[2018-03-21] MEDS: CHLORHEXIDINE 0.12% ORAL RINSE 60 ML BOTTLE SWISH/SPIT SCH (09:00)
[2018-03-21 12:44] VITALS: BP 123/70
== END 2018-03-21 14:50 | disposition home health service (06) | DRG 220 ==
LOC: N.SDSINP 04:56 → N.CVR 07:15 → N.ICU 03-14 09:54 → N.TELES 03-14 14:10
PROVIDERS: ADMIT Thoracic Surgery (Cardiothoracic Vascular Surgery); ATTEND Thoracic Surgery (Cardiothoracic Vascular Surgery)

== ENCOUNTER 2018-03-26 18:26 | Inpatient (IN) ==
[2018-03-26] MEDS ORDERED: DILTIAZEM 50 MG/10 ML VIAL IV STA ×2 (19:02→20:01)
[2018-03-26 19:09] LABS: Basophils % 0.3 % (0.0-0.8); Eosinophils % 0.1 % (0.00-10.9); Hematocrit 30.2 VOL% (35.7-47.0); Hemoglobin 9.6 GM/DL (12.0-16.0); Immature Granulocytes % 0.3 %; Immature Granulocytes Absolute 0.05 #; Lymphocytes # 2.9 10*3/uL (1.4-4.0); Mean Corpuscular HGB Conc 31.8 GM/DL (32-36); Mean Corpuscular Hemoglobin 28 PG (27-34); Mean Corpuscular Volume 88.8 FL (87-102); Mean Platelet Volume 9.8 FL (9.6-12.0); Monocytes # 1.2 10*3/uL (0.11-0.8); Neutrophils # 10.4 10*3/uL (1.4-7.4); Neutrophils % 71.3 % (38.7-73.9); Platelet Count 501 T/CUMM (130-400); Red Cell Distribution Width 14.9 % (9.3-17.3); White Blood Count 14.6 T/CUMM (4-12)
[2018-03-26] MEDS ORDERED: dilTIAZem Drip 125 MG/125 ML PREMIX IV SCH (19:30)
[2018-03-26 19:41] LABS: Alanine Aminotransferase 29 U/L (13-56); Alkaline Phosphatase 139 U/L (45-117); Aspartate Amino Transferase 29 U/L (0-37); Blood Urea Nitrogen 4 MG/DL (7-18); Calcium 8.4 MG/DL (8.5-10.1); Glucose 130 MG/DL (74-106); Osmolality,Calculated 273.7 MOS/KG (273-304); Potassium 3.9 MMOL/L (3.5-5.1); Sodium 138 MMOL/L (136-145); Thyroid Stimulating Hormone < 0.005 uIU/ml (0.358-3.74)
[2018-03-26 21:11] LABS: INR 2.2
[2018-03-26 21:13] LABS: PT Patient Result 23.5 SECS
[2018-03-26] MEDS ORDERED: AMIODARONE INJ 150 MG in DEXTROSE 5% 100 ML IV ONE (21:17)
[2018-03-26] MEDS ORDERED: METOPROLOL TARTRATE 5 MG/5 ML VIAL IV STA (21:17)
[2018-03-26] MEDS ORDERED: AMIODARONE 450 MG/9 ML VIAL IV ONE (21:21)
[2018-03-26] MEDS ORDERED: AMIODARONE INJ 450 MG in DEXTROSE 5% 241 ML IV SCH ×2 (21:30→22:30)
[2018-03-26] MEDS: ACETAMINOPHEN 500 MG TABLET PO STA (21:50)
[2018-03-26] MEDS ORDERED: ACETAMINOPHEN 500 MG TABLET ONE (21:52)
[2018-03-27] MEDS: ACETAMINOPHEN 500 MG TABLET PO STA (02:36)
[2018-03-27 05:36] LABS: PT Patient Result 21.2 SECS
[2018-03-27] MEDS: AMIODARONE INJ 450 MG in DEXTROSE 5% 241 ML IV SCH ×2 (06:13→21:01)
[2018-03-27 07:05] LABS: Barbiturates Screen,Urine Negative (Negative); Benzodiazepines Screen,Urine Negative (Negative); Cannabinoid Screen,Urine Negative (Negative); Opiate Screen,Urine Positive (Negative); Phencyclidine Screen,Urine Negative (Negative)
[2018-03-27] MEDS ORDERED: ACETAMINOPHEN 325 MG TABLET PO PRN (07:52)
[2018-03-27] MEDS: AMIODARONE 200 MG TABLET PO SCH ×2 (09:14→21:22)
[2018-03-27] MEDS: IBUPROFEN 800 MG TABLET PO PRN (09:14)
[2018-03-27] MEDS: ONDANSETRON 4 MG/2 ML VIAL IV PRN ×2 (09:14→15:24)
[2018-03-27] MEDS ORDERED: METOPROLOL TARTRATE 5 MG/5 ML VIAL IV ONE (09:47)
[2018-03-27] MEDS ORDERED: AMIODARONE 150 MG/3 ML VIAL IV ONE (10:14)
[2018-03-27] MEDS: METOPROLOL TARTRATE 50 MG TABLET PO SCH ×2 (11:00→21:22)
[2018-03-27] MEDS ORDERED: FUROSEMIDE 40 MG/4 ML VIAL IV ONE (11:39)
[2018-03-27] MEDS: FUROSEMIDE 40 MG TABLET PO SCH (17:12)
[2018-03-27] MEDS: WARFARIN 2.5 MG TABLET PO SCH (17:26)
[2018-03-28 05:46] LABS: PT Patient Result 21.9 SECS
[2018-03-28] MEDS: AMIODARONE 200 MG TABLET PO SCH ×2 (08:47→20:37)
[2018-03-28] MEDS: METOPROLOL TARTRATE 50 MG TABLET PO SCH ×2 (08:47→20:37)
[2018-03-28] MEDS: FUROSEMIDE 40 MG TABLET PO SCH ×2 (08:47→15:31)
[2018-03-28] MEDS: IBUPROFEN 800 MG TABLET PO PRN (15:23)
[2018-03-28] MEDS: WARFARIN 2.5 MG TABLET PO SCH (17:41)
[2018-03-28] MEDS: AMIODARONE INJ 450 MG in DEXTROSE 5% 241 ML IV SCH (20:35)
[2018-03-29] MEDS: AMIODARONE INJ 450 MG in DEXTROSE 5% 241 ML IV SCH (02:35)
[2018-03-29 05:19] LABS: INR 2.2
[2018-03-29 05:40] LABS: PT Patient Result 23.3 SECS
[2018-03-29] MEDS: METOPROLOL TARTRATE 50 MG TABLET PO SCH (08:50)
[2018-03-29] MEDS: FUROSEMIDE 40 MG TABLET PO SCH (08:50)
[2018-03-29] MEDS: AMIODARONE 200 MG TABLET PO SCH (08:51)
[2018-03-29 12:15] VITALS: BP 124/81
== END 2018-03-29 12:35 | disposition home health service (06) | DRG 309 ==
LOC: N.ED 18:26 → N.EDINP 22:05 → N.TELEN 22:47
PROVIDERS: ADMIT Thoracic Surgery (Cardiothoracic Vascular Surgery); ATTEND Thoracic Surgery (Cardiothoracic Vascular Surgery)

== ENCOUNTER 2018-06-30 15:54 | Inpatient (IN) ==
[2018-06-30] MEDS ORDERED: ALBUTEROL/IPRATROPIUM 3 ML NEB RESP TX STA (16:35)
[2018-06-30] MEDS ORDERED: FUROSEMIDE 100 MG/10 ML VIAL IV STA (16:35)
[2018-06-30] MEDS ORDERED: ONDANSETRON 4 MG/2 ML VIAL IV STA ×2 (16:35→18:44)
[2018-06-30 17:41] LABS: Basophils # 0.1 10*3/uL (0.0-0.2); Basophils % 0.6 % (0.0-0.8); Eosinophils # 0.1 10*3/uL (0.0-0.87); Hematocrit 39.1 VOL% (35.7-47.0); Hemoglobin 12.3 GM/DL (12.0-16.0); Immature Granulocytes % 0.3 %; Immature Granulocytes Absolute 0.02 #; Lymphocytes # 3.6 10*3/uL (1.4-4.0); Lymphocytes % 45.5 % (21.3-54.2); Mean Corpuscular HGB Conc 31.5 GM/DL (32-36); Mean Corpuscular Volume 86.5 FL (87-102); Mean Platelet Volume 10.4 FL (9.6-12.0); Monocytes % 6.8 % (1.7-12.7); Neutrophils % 45.8 % (38.7-73.9); Platelet Count 292 T/CUMM (130-400); Red Blood Count 4.52 MC/CUMM (3.8-5.5); Red Cell Distribution Width 14.9 % (9.3-17.3)
[2018-06-30 18:05] LABS: Bilirubin,Total 0.5 MG/DL (0.2-1.0); Osmolality,Calculated 276.5 MOS/KG (273-304); Total Protein 7.8 G/DL (6.4-8.3)
[2018-06-30 18:15] LABS: INR 2.9
[2018-06-30 18:19] LABS: Apearance,Urine CLEAR (Clear); Bilirubin,Urine Negative (Negative); Blood, Urine Negative (Negative); Glucose,Urine (UA) Negative (Negative); Hyaline Casts,Urine 1 /LPF (0-3); Ketones,Urine 5 mg/dL (Negative); Mucus,Urine Occasional /LPF (Occasional); Nitrite,Urine Negative (Negative); Protein,Urine Negative; RBC,Urine 3 /HPF (0-4); Squamous Epithelial Cell,Urine Occasional /HPF (0-10); Urine Color Yellow (Yellow); Urine Specific Gravity 1.013 (1.001-1.035); Urine Urobilinogen < 2.0 EU/DL (0.2-1.0); WBC,Urine 1 /HPF (0-6)
[2018-06-30] MEDS ORDERED: MORPHINE 4 MG/1 ML VIAL IV STA (18:44)
[2018-06-30] MEDS ORDERED: ACETAMINOPHEN 325 MG TABLET PO PRN (19:15)
[2018-06-30] MEDS ORDERED: MORPHINE 4 MG/1 ML VIAL IV PRN (19:15)
[2018-06-30] MEDS ORDERED: IBUPROFEN 800 MG TABLET PO PRN (19:24)
[2018-06-30] MEDS ORDERED: BENZONATATE 100 MG CAPSULE PO PRN (19:24)
[2018-06-30] MEDS ORDERED: DOCUSATE SODIUM 100 MG CAPSULE PO PRN (19:24)
[2018-06-30] MEDS: AMIODARONE 200 MG TABLET PO SCH (21:47)
[2018-06-30] MEDS: SOTALOL 80 MG TABLET PO SCH (21:47)
[2018-06-30] MEDS: METOPROLOL TARTRATE 50 MG TABLET PO SCH (21:48)
[2018-06-30] MEDS: LOSARTAN 50 MG TABLET PO SCH (21:48)
[2018-06-30] MEDS: ESCITALOPRAM 10 MG TABLET PO SCH (21:48)
[2018-06-30] MEDS: traZODone 50 MG TABLET PO SCH (21:48)
[2018-06-30] MEDS: methIMAzole 10 MG TABLET PO SCH (21:48)
[2018-06-30] MEDS: ATORVASTATIN 40 MG TABLET PO SCH (21:48)
[2018-06-30] MEDS: POTASSIUM CHLORIDE 20 MEQ TABLET PO SCH (21:48)
[2018-06-30] MEDS ORDERED: ALBUTEROL 2.5 MG/3 ML NEB RESP TX PRN (23:00)
[2018-07-01] MEDS: ALBUTEROL/IPRATROPIUM 3 ML NEB RESP TX SCH ×4 (00:05→19:44)
[2018-07-01 07:29] LABS: Basophils % 0.5 % (0.0-0.8); Eosinophils # 0.1 10*3/uL (0.0-0.87); Eosinophils % 1.1 % (0.00-10.9); Hematocrit 36.9 VOL% (35.7-47.0); Hemoglobin 11.7 GM/DL (12.0-16.0); Immature Granulocytes % 0.2 %; Immature Granulocytes Absolute 0.01 #; Lymphocytes # 2.7 10*3/uL (1.4-4.0); Lymphocytes % 43.9 % (21.3-54.2); Mean Corpuscular HGB Conc 31.7 GM/DL (32-36); Mean Platelet Volume 10.6 FL (9.6-12.0); Monocytes % 7.9 % (1.7-12.7); Neutrophils % 46.4 % (38.7-73.9); Platelet Count 271 T/CUMM (130-400); Red Blood Count 4.24 MC/CUMM (3.8-5.5); Red Cell Distribution Width 14.7 % (9.3-17.3); White Blood Count 6.2 T/CUMM (4-12)
[2018-07-01 07:40] LABS: INR 2.9
[2018-07-01 07:46] LABS: PT Patient Result 31.6 SECS
[2018-07-01 07:55] LABS: Albumin 3.5 G/DL (3.4-5.0); Bilirubin,Total 0.6 MG/DL (0.2-1.0); Calcium 8.3 MG/DL (8.5-10.1); Osmolality,Calculated 282.3 MOS/KG (273-304); Total Protein 6.9 G/DL (6.4-8.3)
[2018-07-01] MEDS: LORATADINE 10 MG TABLET PO SCH (09:22)
[2018-07-01] MEDS: SOTALOL 80 MG TABLET PO SCH ×2 (09:23→21:09)
[2018-07-01] MEDS: FUROSEMIDE 40 MG TABLET PO SCH (09:23)
[2018-07-01] MEDS: methIMAzole 10 MG TABLET PO SCH ×2 (09:23→21:10)
[2018-07-01] MEDS: ASPIRIN EC 325 MG TABLET PO SCH (09:23)
[2018-07-01] MEDS: LOSARTAN 50 MG TABLET PO SCH ×2 (09:23→21:09)
[2018-07-01] MEDS: METOPROLOL TARTRATE 50 MG TABLET PO SCH ×2 (09:23→21:10)
[2018-07-01] MEDS: PANTOPRAZOLE 40 MG TABLET PO SCH (09:23)
[2018-07-01] MEDS: POTASSIUM CHLORIDE 20 MEQ TABLET PO SCH ×2 (09:23→21:10)
[2018-07-01] MEDS: AMIODARONE 200 MG TABLET PO SCH ×2 (09:23→21:10)
[2018-07-01] MEDS: amLODIPine 10 MG TABLET PO SCH ×2 (09:23→09:28)
[2018-07-01] MEDS: FLUTICASONE 50 MCG NASAL SPRAY 16 GM BOTTLE BOTH NARES SCH (09:28)
[2018-07-01] MEDS: ONDANSETRON 4 MG/2 ML VIAL IV PRN ×2 (14:38→18:25)
[2018-07-01] MEDS ORDERED: WARFARIN 2.5 MG TABLET PO SCH (18:00)
[2018-07-01] MEDS: traZODone 50 MG TABLET PO SCH (21:10)
[2018-07-01] MEDS: ESCITALOPRAM 10 MG TABLET PO SCH (21:10)
[2018-07-01] MEDS: ATORVASTATIN 40 MG TABLET PO SCH (21:10)
[2018-07-01 21:54] LABS: RBC,Pleural Fluid 8200 T/CUMM
[2018-07-01 21:56] LABS: Lymphocytes,Pleural Fluid 10 %; Monocytes,Pleural Fluid 84 %; Neutrophils,Pleural Fluid 6 %
[2018-07-02] MEDS: ALBUTEROL/IPRATROPIUM 3 ML NEB RESP TX SCH ×3 (00:55→13:45)
[2018-07-02] MEDS: LORATADINE 10 MG TABLET PO SCH (09:36)
[2018-07-02] MEDS: amLODIPine 10 MG TABLET PO SCH (09:36)
[2018-07-02] MEDS: POTASSIUM CHLORIDE 20 MEQ TABLET PO SCH (09:36)
[2018-07-02] MEDS: PANTOPRAZOLE 40 MG TABLET PO SCH (09:36)
[2018-07-02] MEDS: ASPIRIN EC 325 MG TABLET PO SCH (09:36)
[2018-07-02] MEDS: FUROSEMIDE 40 MG TABLET PO SCH (09:36)
[2018-07-02] MEDS: methIMAzole 10 MG TABLET PO SCH (09:36)
[2018-07-02] MEDS: AMIODARONE 200 MG TABLET PO SCH (09:36)
[2018-07-02] MEDS: FLUTICASONE 50 MCG NASAL SPRAY 16 GM BOTTLE BOTH NARES SCH (09:37)
[2018-07-02] MEDS: SOTALOL 80 MG TABLET PO SCH (11:44)
[2018-07-02] MEDS: LOSARTAN 50 MG TABLET PO SCH (11:45)
[2018-07-02] MEDS: METOPROLOL TARTRATE 50 MG TABLET PO SCH (11:45)
[2018-07-02 14:19] VITALS: BP 90/60
== END 2018-07-02 14:25 | disposition home or self-care (01) | DRG 187 ==
LOC: N.ED 15:54 → N.EDINP 19:15 → SUATTDRO 19:15 → N.4E 20:24
PROVIDERS: ADMIT Internal Medicine; ATTEND Internal Medicine

== ENCOUNTER 2019-10-15 15:05 | Inpatient (IN) ==
[2019-10-15 16:23] LABS: Basophils % 0.2 % (0.0-0.8); Eosinophils % 0.2 % (0.00-10.9); Hemoglobin 12.3 GM/DL (12.0-16.0); Immature Granulocytes % 0.3 %; Immature Granulocytes Absolute 0.02 #; Lymphocytes # 1.3 10*3/uL (1.4-4.0); Lymphocytes % 20.9 % (21.3-54.2); Mean Corpuscular HGB Conc 32.4 GM/DL (32-36); Mean Corpuscular Volume 88.4 FL (87-102); Mean Platelet Volume 10.4 FL (9.6-12.0); Monocytes % 3.3 % (1.7-12.7); Neutrophils % 75.1 % (38.7-73.9); Platelet Count 298 T/CUMM (130-400); Red Cell Distribution Width 13.2 % (9.3-17.3); White Blood Count 6.1 T/CUMM (4-12)
[2019-10-15 16:41] LABS: PT Patient Result 79.3 SECS (9.8-11.9)
[2019-10-15 16:45] LABS: INR 8.3
[2019-10-15 16:49] LABS: Albumin 3.5 G/DL (3.4-5.0); Bilirubin,Total 0.8 MG/DL (0.2-1.0); Calcium 8.7 MG/DL (8.5-10.1); Osmolality,Calculated 278.7 MOS/KG (273-304); Total Protein 7.2 G/DL (6.4-8.3)
[2019-10-15] MEDS ORDERED: traZODone 50 MG TABLET PO PRN (17:47)
[2019-10-15] MEDS ORDERED: PHYTONADIONE 10 MG/1 ML AMP SUBCUT STA (17:54)
[2019-10-15] MEDS ORDERED: LACTULOSE 20 GM/30 ML UDCUP PO PRN (17:58)
[2019-10-15] MEDS ORDERED: BISACODYL 5 MG TABLET PO PRN (17:58)
[2019-10-15] MEDS ORDERED: SIMETHICONE CHEW 125 MG TABLET PO PRN (17:58)
[2019-10-15] MEDS ORDERED: guaiFENesin/DM ER 600-30 MG TABLET PO PRN (17:58)
[2019-10-15] MEDS ORDERED: CALCIUM CARBONATE CHEW 500 MG TABLET PO PRN (17:58)
[2019-10-15] MEDS ORDERED: MORPHINE 4 MG/1 ML VIAL IV PRN (17:58)
[2019-10-15] MEDS ORDERED: DEXTROSE 50% 25 GM/50 ML VIAL IV PRN (17:58)
[2019-10-15] MEDS ORDERED: PROMETHAZINE 25 MG/1 ML VIAL IM PRN (17:58)
[2019-10-15] MEDS ORDERED: GLUCAGON 1 MG VIAL IM PRN (17:58)
[2019-10-15] MEDS ORDERED: hydrALAZINE 20 MG/1 ML VIAL IV PRN (17:58)
[2019-10-15] MEDS ORDERED: ACETAMINOPHEN 325 MG TABLET PO PRN (17:58)
[2019-10-15] MEDS ORDERED: diphenhydrAMINE CAP 25 MG CAPSULE PO PRN (17:58)
[2019-10-15] MEDS ORDERED: ALBUTEROL/IPRATROPIUM 3 ML NEB RESP TX PRN (17:58)
[2019-10-15] MEDS ORDERED: ALUMINUM/MAGNES/SIMETH MAX STR 30 ML UDCUP PO PRN (17:58)
[2019-10-15] MEDS ORDERED: ONDANSETRON 4 MG/2 ML VIAL IV PRN (17:58)
[2019-10-15] MEDS ORDERED: PROMETHAZINE 25 MG TABLET PO PRN (17:58)
[2019-10-15] MEDS: DOCUSATE SODIUM 100 MG CAPSULE PO SCH (21:31)
[2019-10-15] MEDS ORDERED: ZALEPLON 5 MG CAPSULE PO PRN (22:00)
[2019-10-15] MEDS ORDERED: ESCITALOPRAM 10 MG TABLET PO PRN (22:02)
[2019-10-15 22:05] LABS: Apearance,Urine CLEAR (Clear); Bacteria,Urine Occasional /HPF (Few); Bilirubin,Urine Negative (Negative); Blood, Urine Negative (Negative); Glucose,Urine (UA) Negative (Negative); Ketones,Urine Negative (Negative); Mucus,Urine Occasional /LPF (Occasional); Nitrite,Urine Negative (Negative); Protein,Urine Negative; RBC,Urine 4 /HPF (0-4); Squamous Epithelial Cell,Urine Occasional /HPF (0-10); Urine Color Amber (Yellow); Urine Specific Gravity 1.026 (1.001-1.035); WBC,Urine 2 /HPF (0-6)
[2019-10-15] MEDS ORDERED: ALBUTEROL 2.5 MG/3 ML NEB RESP TX PRN (23:00)
[2019-10-15] MEDS: METAXALONE 800 MG TABLET PO SCH (23:01)
[2019-10-16 06:07] LABS: Basophils % 0.3 % (0.0-0.8); Eosinophils % 0.2 % (0.00-10.9); Hemoglobin 11.9 GM/DL (12.0-16.0); Immature Granulocytes % 0.3 %; Immature Granulocytes Absolute 0.02 #; Lymphocytes # 1.9 10*3/uL (1.4-4.0); Mean Corpuscular HGB Conc 32.2 GM/DL (32-36); Mean Corpuscular Volume 87.1 FL (87-102); Mean Platelet Volume 10.5 FL (9.6-12.0); Monocytes % 9.2 % (1.7-12.7); Platelet Count 267 T/CUMM (130-400); Red Blood Count 4.25 MC/CUMM (3.8-5.5); Red Cell Distribution Width 13.2 % (9.3-17.3); White Blood Count 5.7 T/CUMM (4-12)
[2019-10-16 06:28] LABS: Albumin 3.3 G/DL (3.4-5.0); Bilirubin,Total 1.3 MG/DL (0.2-1.0); Calcium 8.5 MG/DL (8.5-10.1); Osmolality,Calculated 275.5 MOS/KG (273-304)
[2019-10-16 06:35] LABS: HDL Cholesterol 50 MG/DL (40-60); Risk Ratio 2.56; Thyroid Stimulating Hormone < 0.005 uIU/ml (0.358-3.74); Triglycerides 36 MG/DL (2-150); VLDL CHOLESTEROL 7.2 MG/DL
[2019-10-16 06:50] LABS: INR 10.4
[2019-10-16] MEDS: FUROSEMIDE 40 MG TABLET PO SCH (08:43)
[2019-10-16] MEDS: CHOLECALCIFEROL 1,000 UNIT TABLET PO SCH (08:43)
[2019-10-16] MEDS: METOPROLOL TARTRATE 50 MG TABLET PO SCH (08:43)
[2019-10-16] MEDS: DOCUSATE SODIUM 100 MG CAPSULE PO SCH ×2 (08:43→20:17)
[2019-10-16] MEDS: methIMAzole 10 MG TABLET PO SCH (08:43)
[2019-10-16] MEDS: MONTELUKAST 10 MG TABLET PO SCH (08:43)
[2019-10-16] MEDS: CETIRIZINE 10 MG TABLET PO SCH (08:43)
[2019-10-16] MEDS: PANTOPRAZOLE 40 MG TABLET PO SCH (08:44)
[2019-10-16] MEDS: METAXALONE 800 MG TABLET PO SCH ×3 (08:44→20:12)
[2019-10-16] MEDS ORDERED: PHYTONADIONE 10 MG/1 ML AMP SUBCUT ONE (08:59)
[2019-10-16] MEDS ORDERED: ATORVASTATIN 40 MG TABLET PO SCH (09:00)
[2019-10-17 06:00] LABS: Basophils % 0.5 % (0.0-0.8); Eosinophils % 0.2 % (0.00-10.9); Hematocrit 37.5 VOL% (35.7-47.0); Hemoglobin 12.1 GM/DL (12.0-16.0); Immature Granulocytes % 0.5 %; Immature Granulocytes Absolute 0.02 #; Lymphocytes # 1.9 10*3/uL (1.4-4.0); Lymphocytes % 45.3 % (21.3-54.2); Mean Corpuscular HGB Conc 32.3 GM/DL (32-36); Mean Corpuscular Volume 87.8 FL (87-102); Mean Platelet Volume 10.7 FL (9.6-12.0); Monocytes % 12.9 % (1.7-12.7); Neutrophils % 40.6 % (38.7-73.9); Platelet Count 266 T/CUMM (130-400); Red Blood Count 4.27 MC/CUMM (3.8-5.5); Red Cell Distribution Width 13.3 % (9.3-17.3); White Blood Count 4.2 T/CUMM (4-12)
[2019-10-17 06:23] LABS: Bilirubin,Total 0.7 MG/DL (0.2-1.0); Calcium 8.4 MG/DL (8.5-10.1); Osmolality,Calculated 274.7 MOS/KG (273-304); Total Protein 6.9 G/DL (6.4-8.3)
[2019-10-17 06:31] LABS: INR 2.1
[2019-10-17 07:09] LABS: Hepatitis B Core IgM Quant 0.13 Index; Hepatitis B Surface Ag Quant < 0.10 Index; Hepatitis B Surface Ag Result Negative (Negative); Hepatitis C Virus Ab Quant 0.09 Index; Hepatitis C Virus Ab Result Negative (Negative)
[2019-10-17 07:11] LABS: PT Patient Result 21.6 SECS (9.8-11.9)
[2019-10-17] MEDS ORDERED: POTASSIUM CHLORIDE 20 MEQ TABLET PO ONE (08:24)
[2019-10-17] MEDS: DOCUSATE SODIUM 100 MG CAPSULE PO SCH ×2 (10:04→21:49)
[2019-10-17] MEDS: METOPROLOL TARTRATE 50 MG TABLET PO SCH (10:04)
[2019-10-17] MEDS: MONTELUKAST 10 MG TABLET PO SCH (10:04)
[2019-10-17] MEDS: CHOLECALCIFEROL 1,000 UNIT TABLET PO SCH (10:04)
[2019-10-17] MEDS: FUROSEMIDE 40 MG TABLET PO SCH (10:05)
[2019-10-17] MEDS: PANTOPRAZOLE 40 MG TABLET PO SCH (10:06)
[2019-10-17] MEDS: CETIRIZINE 10 MG TABLET PO SCH (10:06)
[2019-10-17] MEDS: methIMAzole 10 MG TABLET PO SCH (10:06)
[2019-10-17] MEDS: METAXALONE 800 MG TABLET PO SCH ×2 (15:54→21:49)
[2019-10-17] MEDS: FLUTICASONE 44 MCG/PUFF INHALER 10.6 GM INH SCH ×2 (15:55→19:02)
[2019-10-18 06:12] LABS: INR 1.2; PT Patient Result 12.4 SECS (9.8-11.9)
[2019-10-18 06:18] LABS: Basophils % 0.7 % (0.0-0.8); Hematocrit 37.5 VOL% (35.7-47.0); Immature Granulocytes % 0.2 %; Immature Granulocytes Absolute 0.01 #; Lymphocytes # 2.2 10*3/uL (1.4-4.0); Lymphocytes % 52.6 % (21.3-54.2); Mean Corpuscular Volume 88.7 FL (87-102); Mean Platelet Volume 10.4 FL (9.6-12.0); Monocytes % 13.9 % (1.7-12.7); Neutrophils % 31.6 % (38.7-73.9); Platelet Count 290 T/CUMM (130-400); Red Blood Count 4.23 MC/CUMM (3.8-5.5); Red Cell Distribution Width 13.3 % (9.3-17.3); White Blood Count 4.1 T/CUMM (4-12)
[2019-10-18 06:33] LABS: Albumin 3.2 G/DL (3.4-5.0); Bilirubin,Total 0.6 MG/DL (0.2-1.0); Calcium 8.7 MG/DL (8.5-10.1); Osmolality,Calculated 277.4 MOS/KG (273-304)
[2019-10-18 07:07] LABS: Lymphocytes 51 % (20-55); Platelet Estimate Normal; Segmented Neutrophils 35 % (50-85); Total Cells Counted 100
[2019-10-18 07:08] LABS: Anisocytosis 1+
[2019-10-18] MEDS ORDERED: HEPARIN DRIP 25,000 UNITS/500 ML PREMIX IV SCH (07:30)
[2019-10-18] MEDS ORDERED: HEPARIN 5,000 UNIT/1 ML VIAL IV ONE (07:39)
[2019-10-18] MEDS: METAXALONE 800 MG TABLET PO SCH ×3 (08:43→21:29)
[2019-10-18] MEDS: methIMAzole 10 MG TABLET PO SCH (08:44)
[2019-10-18] MEDS: PANTOPRAZOLE 40 MG TABLET PO SCH (08:44)
[2019-10-18] MEDS: CETIRIZINE 10 MG TABLET PO SCH (08:44)
[2019-10-18] MEDS: MONTELUKAST 10 MG TABLET PO SCH (08:44)
[2019-10-18] MEDS: DOCUSATE SODIUM 100 MG CAPSULE PO SCH ×2 (08:44→21:28)
[2019-10-18] MEDS: FUROSEMIDE 40 MG TABLET PO SCH (08:44)
[2019-10-18] MEDS: FLUTICASONE 44 MCG/PUFF INHALER 10.6 GM INH SCH ×2 (08:45→09:47)
[2019-10-18] MEDS: CHOLECALCIFEROL 1,000 UNIT TABLET PO SCH (08:50)
[2019-10-18] MEDS: HEPARIN DRIP 25,000 UNITS/500 ML PREMIX IV SCH ×2 (08:51→09:20)
[2019-10-18] MEDS: METOPROLOL TARTRATE 50 MG TABLET PO SCH (09:43)
[2019-10-18] MEDS: ENOXAPARIN 80 MG/0.8 ML SYRINGE SUBCUT SCH ×2 (11:07→21:32)
[2019-10-18] MEDS: WARFARIN 5 MG TABLET PO SCH (17:31)
[2019-10-19 05:52] LABS: Basophils % 0.7 % (0.0-0.8); Eosinophils % 0.9 % (0.00-10.9); Hematocrit 36.3 VOL% (35.7-47.0); Hemoglobin 11.6 GM/DL (12.0-16.0); Immature Granulocytes % 0.2 %; Immature Granulocytes Absolute 0.01 #; Lymphocytes # 2.6 10*3/uL (1.4-4.0); Lymphocytes % 59.4 % (21.3-54.2); Mean Corpuscular Volume 88.3 FL (87-102); Mean Platelet Volume 10.5 FL (9.6-12.0); Monocytes % 9.3 % (1.7-12.7); Neutrophils % 29.5 % (38.7-73.9); Platelet Count 276 T/CUMM (130-400); Red Blood Count 4.11 MC/CUMM (3.8-5.5); Red Cell Distribution Width 13.2 % (9.3-17.3); White Blood Count 4.3 T/CUMM (4-12)
[2019-10-19 06:07] LABS: INR 1.1; PT Patient Result 11.6 SECS (9.8-11.9)
[2019-10-19 06:15] LABS: Atypical Lymphocytes Few; Giant Platelets Few; Hypochromasia 1+; Lymphocytes 61 % (20-55); Microcytosis Slight; Ovalocytes Slight; Platelet Estimate Normal; Segmented Neutrophils 34 % (50-85); Total Cells Counted 100
[2019-10-19 06:17] LABS: Calcium 8.9 MG/DL (8.5-10.1); Osmolality,Calculated 281.3 MOS/KG (273-304); Total Protein 6.7 G/DL (6.4-8.3)
[2019-10-19] MEDS: CETIRIZINE 10 MG TABLET PO SCH (08:16)
[2019-10-19] MEDS: METAXALONE 800 MG TABLET PO SCH ×2 (08:16→15:11)
[2019-10-19] MEDS: MONTELUKAST 10 MG TABLET PO SCH (08:16)
[2019-10-19] MEDS: CHOLECALCIFEROL 1,000 UNIT TABLET PO SCH (08:16)
[2019-10-19] MEDS: PANTOPRAZOLE 40 MG TABLET PO SCH (08:16)
[2019-10-19] MEDS: FUROSEMIDE 40 MG TABLET PO SCH (08:16)
[2019-10-19] MEDS: methIMAzole 10 MG TABLET PO SCH (08:16)
[2019-10-19] MEDS: DOCUSATE SODIUM 100 MG CAPSULE PO SCH (08:16)
[2019-10-19] MEDS: METOPROLOL TARTRATE 50 MG TABLET PO SCH (08:17)
[2019-10-19] MEDS ORDERED: LACTATED RINGERS 1,000 ML IV SCH (09:00)
[2019-10-19] MEDS ORDERED: LIDOCAINE 2% 5 ML VIAL ONE (09:00)
[2019-10-19] MEDS ORDERED: propofoL 200 MG/20 ML VIAL IV ONE (09:00)
[2019-10-19] MEDS ORDERED: HEPARIN DRIP 25,000 UNITS/500 ML PREMIX IV SCH (12:30)
[2019-10-19] MEDS: FLUTICASONE 44 MCG/PUFF INHALER 10.6 GM INH SCH (12:34)
[2019-10-19 16:30] VITALS: BP 135/75
[2019-10-19] MEDS ORDERED: ENOXAPARIN 100 MG/ML SYRINGE SUBCUT ONE (17:21)
[2019-10-19] MEDS: WARFARIN 5 MG TABLET PO SCH (17:44)
[2019-10-19] MEDS ORDERED: WARFARIN 2.5 MG TABLET PO ONE (18:00)
== END 2019-10-19 18:25 | disposition home health service (06) | DRG 813 ==
LOC: N.ED 15:05 → INTOOBSV 17:46 → SUATTDRO 17:46 → N.EDINP 17:46 → N.3E 21:50
PROVIDERS: ADMIT Internal Medicine; ATTEND Internal Medicine